=== PATIENT | male | born 1950 | race Caucasian/White ===

== ENCOUNTER 2022-04-02 20:37 | Emergency (ER) | payer MEDICARE, BC ==
[2022-04-02] MEDS ORDERED: Aspirin 81 MG Tab.Chew PO ONE (21:13)
[2022-04-02] MEDS ORDERED: cefTRIAXone 1 GM in Sodium Chloride 0.9% 50 ML IV ONE (23:08)
[2022-04-02] MEDS ORDERED: Sodium Chloride 0.9% 1,000 ML IV SCH (23:15)
[2022-04-02] MEDS ORDERED: Lactated Ringers 1,000 ML IV SCH (23:15)
[2022-04-02] MEDS ORDERED: Azithromycin 500 MG Tab PO ONE (23:21)
== END 2022-04-03 02:15 | disposition home or self-care (01) ==
LOC: FB.ED 20:37
DX: J18.9 Pneumonia, unspecified organism (principal); I48.91 Unspecified atrial fibrillation
CPT/HCPCS: 36415; 71046; 80053; 83880; 84484; 85025; 85379; 86140; 87040; 93005; 93010; 96365; 99282; 99285-25; A9270-GY; J0696; J3490; J7030

== ENCOUNTER 2023-09-04 06:57 | Day surgery (SDC) | payer MEDICARE, BC ==
[2023-09-04] MEDS ORDERED: fentaNYL 100 MCG/2 ML SDV IV ONE (06:58)
[2023-09-04] MEDS ORDERED: Midazolam 1 MG/ML 2 ML SDV IV ONE (06:58)
[2023-09-04] MEDS ORDERED: Sodium Chloride 0.9% 10 ML Syringe IV ONE (06:58)
[2023-09-04] MEDS ORDERED: Lactated Ringers 1,000 ML IV PRN (07:00)
[2023-09-04] MEDS ORDERED: Sodium Chloride 0.9% 10 ML Syringe FLUSH PRN (07:00)
[2023-09-04] MEDS ORDERED: acetaZOLAMIDE 500 MG Cap.ER PO ONE (09:00)
== END 2023-09-04 09:50 | disposition home or self-care (01) ==
LOC: FB.SDS 06:57
PROVIDERS: ATTEND Ophthalmology
DX: H25.9 Unspecified age-related cataract (principal); I48.19 Other persistent atrial fibrillation; J44.9 Chronic obstructive pulmonary disease, unspecified; E78.5 Hyperlipidemia, unspecified; G47.33 Obstructive sleep apnea (adult) (pediatric); Z79.01 Long term (current) use of anticoagulants; Z95.2 Presence of prosthetic heart valve; Z79.82 Long term (current) use of aspirin; Z79.899 Other long term (current) drug therapy
CPT/HCPCS: 00142; 66984; A9270; J2250; J3010; J3490; V2632

== ENCOUNTER 2023-09-18 06:26 | Day surgery (SDC) | payer MEDICARE, BC ==
[2023-09-18] MEDS ORDERED: fentaNYL 100 MCG/2 ML SDV IV ONE (06:27)
[2023-09-18] MEDS ORDERED: Midazolam 1 MG/ML 2 ML SDV IV ONE (06:27)
[2023-09-18] MEDS ORDERED: Sodium Chloride 0.9% 10 ML Syringe FLUSH PRN (06:30)
[2023-09-18] MEDS: Lactated Ringers 1,000 ML IV PRN (07:53)
[2023-09-18] MEDS: acetaZOLAMIDE 500 MG Cap.ER PO ONE (08:40)
== END 2023-09-18 09:10 | disposition home or self-care (01) ==
LOC: FB.SDS 06:26
PROVIDERS: ATTEND Ophthalmology
DX: H25.9 Unspecified age-related cataract (principal); I48.19 Other persistent atrial fibrillation; J44.9 Chronic obstructive pulmonary disease, unspecified; E78.5 Hyperlipidemia, unspecified; G47.33 Obstructive sleep apnea (adult) (pediatric); I42.9 Cardiomyopathy, unspecified; Z86.718 Personal history of other venous thrombosis and embolism; Z79.01 Long term (current) use of anticoagulants; Z79.2 Long term (current) use of antibiotics; Z95.4 Presence of other heart-valve replacement; Z86.73 Personal history of transient ischemic attack (TIA), and cerebral infarction without residual deficits
CPT/HCPCS: 00142; 99100; A9270-GY; J2250; J3010; J7120; V2632